=== PATIENT | male | born 1945 | race Caucasian/White ===

== ENCOUNTER 2017-05-13 10:14 | Emergency (ER) | payer OTHER ==
[~2017-05-13] VITALS: Ht 175.3 cm; Wt 86.7 kg
[2017-05-13 11:10] LABS: EOSINOPHIL (%) 0.8 % (0-5); EOSINOPHIL COUNT 0.1 K/uL (0-0.3); HEMATOCRIT 39.4 % (38.0-50.0); IMMATURE GRANULOCYTE (%) 0.4 % (0.0-0.7); INSTRUMENT ABS NEUTROPHIL CT 5.2 K/uL; LYMPHOCYTE COUNT 1.6 K/uL (1.0-2.8); MCH 32.8 PG (29.0-34.0); MCHC 33.8 G/DL (30.0-36.0); MONOCYTE (%) 10.1 % (3-12); MONOCYTE COUNT 0.8 K/uL (0-0.8); NEUTROPHIL (%) 67.9 % (45-76); NEUTROPHIL COUNT 5.2 K/uL (1.8-6.4); PLATELET COUNT 96 K/uL (156-360); RBC DIS.WIDTH-CV 13.9 % (11.8-14.6); RBC DIS.WIDTH-SD 50.2 % (39-53); RED BLOOD COUNT 4.06 M/uL (4.00-5.50); WHITE BLOOD COUNT 7.6 K/uL (4.1-10.2)
[2017-05-13 11:18] LABS: PROTHROMBIN TIME 11.6 SEC (10.2-12.9)
[2017-05-13 11:20] LABS: PTT 26.9 SEC (25-37)
[2017-05-13 11:24] LABS: CHLORIDE 97 mEq/L (99-109); POTASSIUM 3.6 mEq/L (3.7-5.4); SODIUM 138 mEq/L (136-147)
[2017-05-13 11:26] LABS: GLUCOSE 152 mg/dL (70-99)
[2017-05-13 11:28] LABS: ANION GAP 10 MEQ/L (2-14)
[2017-05-13 11:30] LABS: GFR ESTIMATE (CALCULATED) 49 mL/min/
[2017-05-13 11:31] LABS: TROP-I INTERPRETATION NEGATIVE; TROPONIN-I < 0.01 ng/mL (0.0-0.30); UREA NITROGEN (BUN) 27 mg/dL (9-23)
[2017-05-13] MEDS ORDERED: ANTIVERT25 MG PO (13:59)
[2017-05-13 14:10] VITALS: BP 126/75
== END 2017-05-13 14:11 | disposition home or self-care (01) ==
LOC: EME 10:14
PROVIDERS: Emergency Medicine
DX: R42 Dizziness and giddiness (principal); M54.9 Dorsalgia, unspecified; G93.89 Other specified disorders of brain; Z98.890 Other specified postprocedural states
CPT/HCPCS: 70450; 70551; 71010; 80048; 84484; 85025; 85610; 85730; 93005; 99281; 99284

== ENCOUNTER 2017-06-01 16:50 | Inpatient (IN) | payer OTHER ==
[~2017-06-01] VITALS: Ht 175.3 cm; Wt 83.6 kg
[~2017-06-01 16:50] MED LIST: ANTIVERT25 MG PO
[2017-06-01 18:15] LABS: BASOPHIL (%) 0.1 % (0-1); EOSINOPHIL (%) 1.1 % (0-5); EOSINOPHIL COUNT 0.1 K/uL (0-0.3); HEMATOCRIT 37.8 % (38.0-50.0); IMMATURE GRANULOCYTE (%) 0.4 % (0.0-0.7); LYMPHOCYTE (%) 10.2 % (15-42); LYMPHOCYTE COUNT 0.8 K/uL (1.0-2.8); MCH 33.2 PG (29.0-34.0); MCHC 34.4 G/DL (30.0-36.0); MCV 96.7 FL (86-99); MONOCYTE (%) 5.4 % (3-12); MONOCYTE COUNT 0.4 K/uL (0-0.8); NEUTROPHIL (%) 82.8 % (45-76); NEUTROPHIL COUNT 6.2 K/uL (1.8-6.4); PLATELET COUNT 76 K/uL (156-360); RBC DIS.WIDTH-CV 14.7 % (11.8-14.6); RBC DIS.WIDTH-SD 52.5 % (39-53); RED BLOOD COUNT 3.91 M/uL (4.00-5.50); WHITE BLOOD COUNT 7.4 K/uL (4.1-10.2)
[2017-06-01 18:24] LABS: ALBUMIN 4.2 g/dL (3.2-4.8); CHLORIDE 98 mEq/L (99-109); POTASSIUM 4.7 mEq/L (3.7-5.4); SODIUM 142 mEq/L (136-147)
[2017-06-01 18:25] LABS: MAGNESIUM 1.7 mg/dL (1.3-2.7)
[2017-06-01 18:27] LABS: GLUCOSE 130 mg/dL (70-99); TOTAL PROTEIN 7.4 g/dL (6.4-8.3)
[2017-06-01 18:29] LABS: TOTAL BILIRUBIN 0.8 mg/dL (0.0-1.0)
[2017-06-01 18:30] LABS: ALKALINE PHOSPHATASE 69 IU/L (3-129); SERUM ETHYL ALCOHOL 296 mg/dL
[2017-06-01 18:31] LABS: CREATININE 1.2 mg/dL (0.6-1.3); GFR ESTIMATE (CALCULATED) > 59 mL/min/ (58.99-99999)
[2017-06-01 18:32] LABS: AST (GOT) 115 IU/L (2-34); UREA NITROGEN (BUN) 18 mg/dL (9-23)
[2017-06-01 18:34] LABS: ALT (GPT) 50 IU/L (3-49); LIPASE 130 U/L (1.0-51.0)
[2017-06-01 18:39] LABS: APPEARANCE SL.HAZY ((CLEAR)); BILIRUBIN NEGATIVE; BLOOD SMALL; COLOR YELLOW ((YELLOW)); GLUCOSE (STRIP) NEGATIVE; KETONES 20; LEUKOCYTES NEGATIVE; NITRITE NEGATIVE; PROTEIN (STRIP) 100; UROBILINOGEN 0.2 MG/DL (0.2-1.0)
[2017-06-01 18:50] LABS: AMPHETAMINE NEGATIVE (500 ng/mL); BARBITURATES NEGATIVE (200 ng/mL); BENZODIAZEPINES NEGATIVE (150 ng/mL); BUPRENORPHINE NEGATIVE (10 ng/mL); COCAINE NEGATIVE (150 ng/mL); METHADONE NEGATIVE (200 ng/mL); METHAMPHETAMINE NEGATIVE (500 ng/mL); OPIATES (MORPHINE) NEGATIVE (100 ng/mL); OXYCODONE NEGATIVE (100 ng/mL); PHENCYCLIDINE NEGATIVE (25 ng/mL); PROPOXYPHENE NEGATIVE (300 ng/mL); THC CANNABINOIDS NEGATIVE (50 ng/mL); TRICYCLIC ANTIDEPRESSANTS NEGATIVE (300 ng/mL)
[2017-06-01 18:51] LABS: BACTERIA NONE SEEN /HPF; EPITHELIAL CELLS NONE SEEN /HPF; HYALINE CASTS 0-5 /LPF; MUCUS TRACE /LPF; RED BLOOD CELLS 0-5 /HPF (0-5); WHITE BLOOD CELLS 0-5 /HPF (0-5)
[2017-06-02 02:03] VITALS: BP 137/82
[2017-06-02 04:30] VITALS: BP 160/92
[2017-06-02 05:19] LABS: HEMATOCRIT 34.9 % (38.0-50.0); HEMOGLOBIN 12.1 G/DL (12.5-16.6); MCH 33.7 PG (29.0-34.0); MCHC 34.7 G/DL (30.0-36.0); MCV 97.2 FL (86-99); PLATELET COUNT 61 K/uL (156-360); RBC DIS.WIDTH-CV 14.6 % (11.8-14.6); RBC DIS.WIDTH-SD 51.8 % (39-53); RED BLOOD COUNT 3.59 M/uL (4.00-5.50); WHITE BLOOD COUNT 5.5 K/uL (4.1-10.2)
[2017-06-02 05:57] LABS: CHLORIDE 98 MEQ/L (99-109); GFR ESTIMATE (CALCULATED) > 59 mL/min/ (58.99-99999); GLUCOSE 100 mg/dL (70-99); POTASSIUM 4.2 MEQ/L (3.7-5.4); SODIUM 142 MEQ/L (136-147); UREA NITROGEN (BUN) 17 mg/dL (9-23)
[2017-06-02 08:49] VITALS: BP 143/86
[2017-06-02 11:27] VITALS: BP 124/70
[2017-06-02 15:53] VITALS: BP 139/82
[2017-06-02 19:48] VITALS: BP 121/80
[2017-06-03] VITALS (7 sets, daily range): BP systolic 119–166; BP diastolic 68–93
[2017-06-03 05:28] LABS: HEMATOCRIT 33.9 % (38.0-50.0); HEMOGLOBIN 11.6 G/DL (12.5-16.6); MCH 33.5 PG (29.0-34.0); MCHC 34.2 G/DL (30.0-36.0); RBC DIS.WIDTH-CV 14.5 % (11.8-14.6); RBC DIS.WIDTH-SD 51.8 % (39-53); RED BLOOD COUNT 3.46 M/uL (4.00-5.50); WHITE BLOOD COUNT 5.5 K/uL (4.1-10.2)
[2017-06-03 06:07] LABS: IMM.PLATELET FRACTION 7.7 (1-7); PLAT.SUFFICIENCY VERY DECREASED; PLATELET COUNT 46 K/uL (156-360)
[2017-06-03 06:09] LABS: CHLORIDE 102 MEQ/L (99-109); GFR ESTIMATE (CALCULATED) > 59 mL/min/ (58.99-99999); GLUCOSE 102 mg/dL (70-99); POTASSIUM 3.4 MEQ/L (3.7-5.4); SODIUM 141 MEQ/L (136-147); UREA NITROGEN (BUN) 13 mg/dL (9-23)
[2017-06-03] MEDS ORDERED: ANTIVERT25 MG PO (13:56)
[2017-06-03] MEDS ORDERED: VITAMIN B-12500 MC5 SL (13:58)
[2017-06-03] MEDS ORDERED: DICLOFENAC SODI75 MG PO (13:59)
[2017-06-03] MEDS ORDERED: NORVASC5 MG PO (14:00)
[2017-06-04 03:22] VITALS: BP 153/98
[2017-06-04 05:39] LABS: HEMATOCRIT 35.1 % (38.0-50.0); HEMOGLOBIN 11.9 G/DL (12.5-16.6); MCH 33.4 PG (29.0-34.0); MCHC 33.9 G/DL (30.0-36.0); MCV 98.6 FL (86-99); RBC DIS.WIDTH-CV 14.1 % (11.8-14.6); RBC DIS.WIDTH-SD 51.2 % (39-53); RED BLOOD COUNT 3.56 M/uL (4.00-5.50); WHITE BLOOD COUNT 7.2 K/uL (4.1-10.2)
[2017-06-04 06:19] LABS: IMM.PLATELET FRACTION 9.1 (1-7); PLAT.SUFFICIENCY DECREASED; PLATELET COUNT 44 K/uL (156-360)
[2017-06-04 06:33] LABS: CHLORIDE 104 MEQ/L (99-109); GFR ESTIMATE (CALCULATED) > 59 mL/min/ (58.99-99999); GLUCOSE 109 mg/dL (70-99); POTASSIUM 3.7 MEQ/L (3.7-5.4); SODIUM 139 MEQ/L (136-147); UREA NITROGEN (BUN) 10 mg/dL (9-23)
[2017-06-04 09:10] VITALS: BP 111/82
[2017-06-04 12:33] VITALS: BP 145/103
[2017-06-04 19:13] VITALS: BP 102/70
[2017-06-04 23:32] VITALS: BP 136/83
[2017-06-05 03:23] VITALS: BP 117/73
[2017-06-05 07:52] VITALS: BP 118/73
[2017-06-05 11:28] VITALS: BP 134/83
[2017-06-05 15:59] VITALS: BP 115/75
[2017-06-05 19:24] VITALS: BP 121/64
[2017-06-05 23:35] VITALS: BP 136/77
[2017-06-06] VITALS (8 sets, daily range): BP systolic 100–168; BP diastolic 65–98
[2017-06-06 05:17] LABS: HEMATOCRIT 32.4 % (38.0-50.0); MCH 34.1 PG (29.0-34.0); MCV 100.3 FL (86-99); RBC DIS.WIDTH-CV 13.9 % (11.8-14.6); RBC DIS.WIDTH-SD 51.1 % (39-53); RED BLOOD COUNT 3.23 M/uL (4.00-5.50); WHITE BLOOD COUNT 9.2 K/uL (4.1-10.2)
[2017-06-06 05:20] LABS: PLATELET COUNT 123 K/uL (156-360)
[2017-06-06 06:11] LABS: ALBUMIN 3.3 G/DL (3.2-4.8); ALKALINE PHOSPHATASE 51 IU/L (3-129); ALT (GPT) 20 IU/L (3-49); AST (GOT) 37 IU/L (2-34); CHLORIDE 103 MEQ/L (99-109); GFR ESTIMATE (CALCULATED) > 59 mL/min/ (58.99-99999); GLUCOSE 133 mg/dL (70-99); MAGNESIUM 1.4 mg/dl (1.3-2.7); POTASSIUM 3.9 MEQ/L (3.7-5.4); SODIUM 139 MEQ/L (136-147); TOTAL BILIRUBIN 0.9 MG/DL (0.0-1.0); UREA NITROGEN (BUN) 12 mg/dL (9-23)
[2017-06-06 06:19] LABS: APPEARANCE SL.HAZY ((CLEAR)); BILIRUBIN NEGATIVE; BLOOD NEGATIVE; COLOR YELLOW ((YELLOW)); GLUCOSE (STRIP) NEGATIVE; KETONES NEGATIVE; LEUKOCYTES NEGATIVE; NITRITE NEGATIVE; PROTEIN (STRIP) NEGATIVE; SPECIFIC GRAVITY 1.016 (1.000-1.030)
[2017-06-06 06:28] LABS: BACTERIA RARE /HPF; EPITHELIAL CELLS RARE /HPF; MUCUS TRACE /LPF; UCUL ADDED? NO; WHITE BLOOD CELLS 0-5 /HPF (0-5)
[2017-06-06 06:45] LABS: ATYPICAL LYMPHOCYTE 1.7 %; EOSINOPHIL ABS CT 0; LYMPHOCYTES 8.7 % (15.0-45.0); MONOCYTES 23.5 % (0-9.0); MYELOCYTES 0.9 %; PLAT.SUFFICIENCY DECREASED; SEG.NEUTROPHILS 65.2 % (46.0-76.0)
[2017-06-07 03:16] VITALS: BP 129/71
[2017-06-07 08:00] VITALS: BP 132/77
[2017-06-07 11:19] VITALS: BP 165/96
[2017-06-07 15:57] VITALS: BP 126/73
[2017-06-07 19:30] VITALS: BP 116/63
[2017-06-07 23:43] VITALS: BP 116/76
[2017-06-08 04:08] VITALS: BP 123/70
[2017-06-08 10:21] VITALS: BP 124/69
[2017-06-08 11:42] VITALS: BP 144/78
[2017-06-08 20:00] VITALS: BP 145/71
[2017-06-08 23:00] VITALS: BP 143/77
[2017-06-09 03:07] VITALS: BP 130/75
[2017-06-09 09:00] VITALS: BP 135/76
[2017-06-09 11:28] VITALS: BP 125/69
[2017-06-09 16:21] VITALS: BP 145/70
[2017-06-09 19:16] VITALS: BP 114/69
[2017-06-10 03:28] VITALS: BP 160/83
[2017-06-10 05:51] LABS: BASOPHIL (%) 0.5 % (0-1); BASOPHIL COUNT 0.1 K/uL (0-0.1); EOSINOPHIL (%) 0.8 % (0-5); EOSINOPHIL COUNT 0.1 K/uL (0-0.3); HEMATOCRIT 31.2 % (38.0-50.0); HEMOGLOBIN 10.4 G/DL (12.5-16.6); IMMATURE GRANULOCYTE (%) 0.8 % (0.0-0.7); LYMPHOCYTE (%) 9.9 % (15-42); LYMPHOCYTE COUNT 1.1 K/uL (1.0-2.8); MCH 33.3 PG (29.0-34.0); MCHC 33.3 G/DL (30.0-36.0); MONOCYTE (%) 14.1 % (3-12); MONOCYTE COUNT 1.5 K/uL (0-0.8); NEUTROPHIL (%) 73.9 % (45-76); NEUTROPHIL COUNT 7.9 K/uL (1.8-6.4); RBC DIS.WIDTH-CV 13.8 % (11.8-14.6); RBC DIS.WIDTH-SD 50.7 % (39-53); RED BLOOD COUNT 3.12 M/uL (4.00-5.50); WHITE BLOOD COUNT 10.6 K/uL (4.1-10.2)
[2017-06-10 05:54] LABS: PLATELET COUNT 456 K/uL (156-360)
[2017-06-10 06:32] LABS: CHLORIDE 106 MEQ/L (99-109); CREATININE 0.9 MG/DL (0.6-1.3); GFR ESTIMATE (CALCULATED) > 59 mL/min/ (58.99-99999); GLUCOSE 97 mg/dL (70-99); POTASSIUM 3.7 MEQ/L (3.7-5.4); SODIUM 142 MEQ/L (136-147); UREA NITROGEN (BUN) 12 mg/dL (9-23)
[2017-06-10 07:15] VITALS: BP 150/85
[2017-06-10 12:03] VITALS: BP 126/72
[2017-06-10 15:58] VITALS: BP 120/74
[2017-06-10 19:45] VITALS: BP 143/78
[2017-06-10 23:42] VITALS: BP 132/78
[2017-06-11 04:40] VITALS: BP 169/98
[2017-06-11 11:32] VITALS: BP 120/73
[2017-06-11 15:07] VITALS: BP 118/59
[2017-06-11 19:00] VITALS: BP 113/68
[2017-06-11 20:05] LABS: HDL CHOLESTEROL 35 MG/DL (Desirable>=40); LDL CHOLESTEROL 59 mg/dL (Desirable<100); NON-HDL CHOLESTEROL 71 mg/dL (Desirable<160); TOTAL CHOLESTEROL 106 mg/dL (Desirable<200); TRIGLYCERIDES 58 MG/DL (Normal: <150)
[2017-06-11 20:13] LABS: Estimated Average Glucose 128 mg/dL (70-123); HEMOGLOBIN A1c (GLYCOHEMOGLOB) 6.1 % HGB (Below 5.7)
[2017-06-11 22:00] VITALS: BP 150/96
[2017-06-11 23:33] VITALS: BP 128/79
[2017-06-12 04:02] VITALS: BP 126/80
[2017-06-12 06:23] LABS: HEMATOCRIT 32.6 % (38.0-50.0); HEMOGLOBIN 10.8 G/DL (12.5-16.6); MCH 32.9 PG (29.0-34.0); MCHC 33.1 G/DL (30.0-36.0); MCV 99.4 FL (86-99); PLATELET COUNT 473 K/uL (156-360); RBC DIS.WIDTH-SD 51.1 % (39-53); RED BLOOD COUNT 3.28 M/uL (4.00-5.50); WHITE BLOOD COUNT 11.5 K/uL (4.1-10.2)
[2017-06-12 07:39] VITALS: BP 110/63
[2017-06-12 11:49] VITALS: BP 127/72
[2017-06-12 16:57] VITALS: BP 142/89
[2017-06-12 19:52] VITALS: BP 120/78
[2017-06-12 23:37] VITALS: BP 125/78
[2017-06-13 03:36] VITALS: BP 124/76
[2017-06-13 06:43] LABS: HEMATOCRIT 32.8 % (38.0-50.0); HEMOGLOBIN 10.5 G/DL (12.5-16.6); MCH 32.3 PG (29.0-34.0); MCV 100.9 FL (86-99); PLATELET COUNT 585 K/uL (156-360); RBC DIS.WIDTH-CV 14.1 % (11.8-14.6); RBC DIS.WIDTH-SD 52.3 % (39-53); RED BLOOD COUNT 3.25 M/uL (4.00-5.50); WHITE BLOOD COUNT 12.3 K/uL (4.1-10.2)
[2017-06-13 07:10] LABS: CHLORIDE 107 MEQ/L (99-109); GFR ESTIMATE (CALCULATED) > 59 mL/min/ (58.99-99999); GLUCOSE 99 mg/dL (70-99); POTASSIUM 4.1 MEQ/L (3.7-5.4); SODIUM 145 MEQ/L (136-147); UREA NITROGEN (BUN) 15 mg/dL (9-23)
[2017-06-13 07:56] VITALS: BP 125/78
[2017-06-13 11:57] VITALS: BP 125/96
[2017-06-13 15:57] VITALS: BP 124/80
[2017-06-13 19:33] VITALS: BP 117/73
[2017-06-13 23:36] VITALS: BP 132/78
[2017-06-14 03:22] VITALS: BP 129/78
[2017-06-14 06:42] LABS: HEMATOCRIT 33.5 % (38.0-50.0); HEMOGLOBIN 11.1 G/DL (12.5-16.6); MCH 33.2 PG (29.0-34.0); MCHC 33.1 G/DL (30.0-36.0); MCV 100.3 FL (86-99); PLATELET COUNT 575 K/uL (156-360); RBC DIS.WIDTH-CV 13.9 % (11.8-14.6); RBC DIS.WIDTH-SD 51.2 % (39-53); RED BLOOD COUNT 3.34 M/uL (4.00-5.50); WHITE BLOOD COUNT 12.1 K/uL (4.1-10.2)
[2017-06-14 07:02] VITALS: BP 127/74
[2017-06-14 07:07] LABS: CHLORIDE 108 MEQ/L (99-109); CREATININE 0.9 MG/DL (0.6-1.3); GFR ESTIMATE (CALCULATED) > 59 mL/min/ (58.99-99999); GLUCOSE 101 mg/dL (70-99); POTASSIUM 4.2 MEQ/L (3.7-5.4); SODIUM 146 MEQ/L (136-147); UREA NITROGEN (BUN) 15 mg/dL (9-23)
[2017-06-14 11:05] VITALS: BP 135/77
[2017-06-14] MEDS ORDERED: ASPIRIN81 M2 PO (11:55)
[2017-06-14] MEDS ORDERED: LOPRESSOR25 MG PO (11:55)
[2017-06-14] MEDS ORDERED: FOLIC ACID1 MG PO (11:55)
[2017-06-14] MEDS ORDERED: ATORVASTATIN CA40 MG PO (11:55)
[2017-06-14] MEDS ORDERED: DOCUSATE SODIU100 MG PO (11:55)
[2017-06-14] MEDS ORDERED: THERAGRAN1 TABLET PO (11:56)
[2017-06-14] MEDS ORDERED: Thiamine,Vitamin B1 PO (11:56)
[2017-06-14 15:31] VITALS: BP 131/69
== END 2017-06-14 18:12 | DRG 56 ==
LOC: EME 16:50 → EDOF 06-02 00:01 → ENRESERV 06-02 00:04 → 5WEST 06-02 00:48 → ENRESERV 06-11 18:46 → 5SOUTH 06-11 20:21 → ENRESERV 06-11 20:21 → 5WEST 06-11 20:24 → 5SOUTH 06-11 21:07
PROVIDERS: Emergency Medicine; Hospitalist; Internal Medicine; Nurse Practitioner Adult Health; Physician Assistant; Physician Assistant Medical
PROC: HZ2ZZZZ Detoxification Services for Substance Abuse Treatment (ICD-10-PCS; principal; 2017-06-02)
DX: G31.2 Degeneration of nervous system due to alcohol (principal); F10.27 Alcohol dependence with alcohol-induced persisting dementia; F10.239 Alcohol dependence with withdrawal, unspecified; I63.9 Cerebral infarction, unspecified; N30.00 Acute cystitis without hematuria; E46 Unspecified protein-calorie malnutrition; I47.2 Ventricular tachycardia; I49.3 Ventricular premature depolarization; E87.6 Hypokalemia; H10.89 Other conjunctivitis; I27.20 Pulmonary hypertension, unspecified; D69.59 Other secondary thrombocytopenia; D64.9 Anemia, unspecified; I10 Essential (primary) hypertension; Y90.8 Blood alcohol level of 240 mg/100 ml or more; G89.29 Other chronic pain; M54.5 Low back pain; E66.9 Obesity, unspecified; Z23 Encounter for immunization
CPT/HCPCS: 70450; 70551; 71010; 71250; 71275; 74176; 80048; 80048 91; 80053; 80061; 81003; 82140; 83036; 83605; 83690; 83735; 85025; 85027; 87040; 90686; 92526 GN; 92610 GN; 93005; 93306; 93880; 94799; 97530 GO; 97530 GP; 99281; 99285; G0480; G8987 CK; G8988 GO CJ; J1644; J2060; J2543; J3411; J3475; J7030; J7050

== ENCOUNTER 2017-06-20 10:43 | Inpatient (IN) | payer OTHER ==
[~2017-06-20] VITALS: Ht 188 cm; Wt 79.1 kg
[~2017-06-20 10:43] MED LIST changes: +ASPIRIN81 M2 PO; +ATORVASTATIN CA40 MG PO; +DICLOFENAC SODI75 MG PO; +DOCUSATE SODIU100 MG PO; +FOLIC ACID1 MG PO; +LOPRESSOR25 MG PO; +NORVASC5 MG PO; +THERAGRAN1 TABLET PO; +Thiamine,Vitamin B1 PO; +VITAMIN B-12500 MC5 SL
[2017-06-20 11:26] LABS: BASOPHIL (%) 0.2 % (0-1); EOSINOPHIL (%) 0.1 % (0-5); HEMATOCRIT 32.8 % (38.0-50.0); HEMOGLOBIN 10.4 G/DL (12.5-16.6); IMMATURE GRANULOCYTE (%) 1.3 % (0.0-0.7); LYMPHOCYTE (%) 6.2 % (15-42); LYMPHOCYTE COUNT 1.1 K/uL (1.0-2.8); MCH 32.1 PG (29.0-34.0); MCHC 31.7 G/DL (30.0-36.0); MCV 101.2 FL (86-99); MONOCYTE (%) 7.3 % (3-12); MONOCYTE COUNT 1.3 K/uL (0-0.8); NEUTROPHIL (%) 84.9 % (45-76); NEUTROPHIL COUNT 14.6 K/uL (1.8-6.4); RBC DIS.WIDTH-CV 14.6 % (11.8-14.6); RBC DIS.WIDTH-SD 54.6 % (39-53); RED BLOOD COUNT 3.24 M/uL (4.00-5.50); WHITE BLOOD COUNT 17.2 K/uL (4.1-10.2)
[2017-06-20 11:32] LABS: ALBUMIN 2.7 g/dL (3.2-4.8); CHLORIDE 116 mEq/L (99-109); POTASSIUM 4.5 mEq/L (3.7-5.4); SODIUM 152 mEq/L (136-147)
[2017-06-20 11:35] LABS: GLUCOSE 152 mg/dL (70-99); TOTAL PROTEIN 6.8 g/dL (6.4-8.3)
[2017-06-20 11:37] LABS: TOTAL BILIRUBIN 0.5 mg/dL (0.0-1.0)
[2017-06-20 11:38] LABS: ALKALINE PHOSPHATASE 84 IU/L (3-129); GFR ESTIMATE (CALCULATED) 33 mL/min/ (58.99-99999)
[2017-06-20 11:39] LABS: CREATININE 2.1 mg/dL (0.6-1.3)
[2017-06-20 11:40] LABS: AST (GOT) 40 IU/L (2-34)
[2017-06-20 11:41] LABS: ALT (GPT) 41 IU/L (3-49)
[2017-06-20 11:43] LABS: UREA NITROGEN (BUN) 64 mg/dL (9-23)
[2017-06-20 11:44] LABS: TROP-I INTERPRETATION NEGATIVE; TROPONIN-I 0.21 ng/mL (0.0-0.30)
[2017-06-20 12:28] LABS: PLATELET COUNT 254 K/uL (156-360)
[2017-06-20 14:44] LABS: APPEARANCE CLOUDY ((CLEAR)); BILIRUBIN NEGATIVE; BLOOD NEGATIVE; COLOR AMBER ((YELLOW)); GLUCOSE (STRIP) NEGATIVE; KETONES NEGATIVE; LEUKOCYTES NEGATIVE; NITRITE NEGATIVE; PROTEIN (STRIP) 30; SPECIFIC GRAVITY 1.021 (1.000-1.030)
[2017-06-20 14:54] LABS: BACTERIA RARE /HPF; EPITHELIAL CELLS RARE /HPF; MUCUS 2+ /LPF; UCUL ADDED? YES; WHITE BLOOD CELLS 15-20 /HPF (0-5)
[2017-06-20 15:12] LABS: BASE EXCESS -4.7 mEq/L (-3 to +3); BICARBONATE 21.6 mEq/L (22-26); CARBOXY HGB 1.7 % (0-5); COMMENTS - BLOOD GASES C+; DEVICE VENT; FI02 100 %; MECHANICAL RATE 15 resp/min; METHEMOGLOBIN 0.7 % (0-1.5); MODE ACVC; PCO2 44 mm Hg (35-45); PEEP 10 CM/H20; PO2 115 mm Hg (80-100); SITE LR; TIDAL VOLUME 600 ML; TOTAL RESP RATE 15 resp/min
[2017-06-20 16:22] LABS: BASE EXCESS -4.9 mEq/L (-3 to +3); BICARBONATE 21.1 mEq/L (22-26); CARBOXY HGB 1.6 % (0-5); COMMENTS - BLOOD GASES C+; DEVICE VENT; FI02 100 %; MECHANICAL RATE 15 resp/min; MODE ACVC; PCO2 42 mm Hg (35-45); PEEP 13 CM/H20; PO2 53 mm Hg (80-100); SITE LR; TIDAL VOLUME 600 ML; TOTAL RESP RATE 21 resp/min; pH 7.31 (7.35-7.45)
[2017-06-20 17:16] LABS: BICARBONATE 21.2 mEq/L (22-26); CARBOXY HGB 1.4 % (0-5); COMMENTS - BLOOD GASES C+; DEVICE VENT; FI02 100 %; MECHANICAL RATE 18 resp/min; MODE AC; PCO2 43 mm Hg (35-45); PO2 74 mm Hg (80-100); SITE LR; TIDAL VOLUME 600 ML; TOTAL RESP RATE 23 resp/min
[2017-06-20] MEDS ORDERED: ASPIR 8181 M1 PO (17:16)
[2017-06-20] MEDS ORDERED: LIPITOR40 MG PO (17:16)
[2017-06-20 17:17] LABS: PEEP 15 CM/H20
[2017-06-20] MEDS ORDERED: THERAGRAN-M PR1 EAC1 PO (17:17)
[2017-06-20] MEDS ORDERED: B-1100 MG PO (17:17)
[2017-06-20] MEDS ORDERED: FOLIC ACID1 MG PO (17:17)
[2017-06-20] MEDS ORDERED: LOPRESSOR25 MG PO (17:18)
[2017-06-20 18:00] VITALS: BP 94/49
[2017-06-20 19:00] VITALS: BP 83/67
[2017-06-20 19:30] VITALS: BP 86/63
[2017-06-20 20:00] VITALS: BP 81/60
== END 2017-06-20 20:57 | DRG 871 ==
LOC: EME 10:43 → EDOF 17:05 → 4WEST 17:05 → ENRESERV 17:17 → 4WEST 17:27
PROVIDERS: Emergency Medicine; Internal Medicine Critical Care Medicine
DX: A41.9 Sepsis, unspecified organism (principal); J18.9 Pneumonia, unspecified organism; J96.01 Acute respiratory failure with hypoxia; N17.9 Acute kidney failure, unspecified; I26.90 Septic pulmonary embolism without acute cor pulmonale; I95.9 Hypotension, unspecified; I46.9 Cardiac arrest, cause unspecified; K59.00 Constipation, unspecified; K52.9 Noninfective gastroenteritis and colitis, unspecified; I10 Essential (primary) hypertension; G89.29 Other chronic pain; M54.9 Dorsalgia, unspecified
CPT/HCPCS: 31500; 36600; 71045; 71250; 72170; 74176; 80053; 81003; 82803; 82948; 83605; 84484; 85025; 87040; 87070; 87086; 87106; 87205; 87641; 94002; 99281; 99285; C1751; J2250; J2543; J3370